=== PATIENT | female | born 1950 | race Caucasian/White ===

== ENCOUNTER 2017-01-07 12:09 | Emergency (ER) | payer OTHER, MEDICARE ==
[~2017-01-07] VITALS: Ht 157.5 cm; Wt 75.0 kg
[2017-01-07 12:20] VITALS: BP 167/110; PULSE 107; RESP 16; O2SAT 95
[2017-01-07] MEDS ORDERED: 0.9% Sodium Chloride 1,000 ML IV ONE (13:40)
--- NOTE | 2017-01-07 13:57 | ED.REPORT ---
HPI-General Illness Date of Service Jan 07, 2017 ED Provider: Familia Roberts PA-C Malina is a 66-year-old female with a recent history of a right total knee arthroplasty who presents the emergency department with a chief complaint of numbness in her hands and feet. She is referred to emergency department by her primary care provider who is concerned about the possibility of a pulmonary embolus due to her mild shortness of breath and tachycardia. She admits reduced exercise tolerance and tachycardia. Patient underwent a right TKA November 24, performed by Dr. Mirza. Patient states that healing and physical therapy of progressing well. Not on blood thinners, but she is taking aspirin. Patient reports numbness began in her feet approximately 10 days ago progressing up her calf above the knee, and to come in by sensation of cool skin and heaviness in her legs. At this point she has similar sensations in her hands and forearms. She states she feels unsteady on her feet, and her daughter states that her gait appears unusual for her. Denies falls, vertigo, syncope or presyncope. Denies vision changes, weakness. Denies fever, chills, malaise, abdominal pain, vomiting, diaphoresis, chest pain, palpitations, cough, wheeze. Denies leg swelling or pain. Nursing Notes Stated Complaint: NUMBNESS/SENT FROM DR OFFICE Chief Complaint: Neuro Symptoms/ Deficits Nursing Notes Reviewed: Yes Allergies: Coded Allergies: codeine (Verified Allergy, Intermediate, HIVES, 01/07/17) General Time Seen by MD: 13:12 Chief Complaint Other (limb numbness) Past Medical History Past Medical History Notes: Right total knee arthroplasty Review of Systems General: Denies fever, chills, malaise. HEENT: Denies congestion, headache, sore throat. Respiratory: Admits reduced exercise tolerance. Denies dyspnea, cough, shortness of breath, wheezing. Cardiovascular: Denies chest pain, palpitations. Gastrointestinal: Denies vomiting, diarrhea, abdominal pain. Genitourinary: Denies frequency, urgency, dysuria, hematuria. Otherwise as noted in HPI. Physical Exam General: Well appearing, well developed, well nourished, no acute distress. Head: Atraumatic, normocephalic. Eyes: No scleral icterus or injection. No discharge. Vision grossly intact. ENT: Voice clear, hearing grossly intact. Respiratory: Regular rate and rhythm. Breath sounds present, clear to auscultation and equal bilaterally. No respiratory distress. No increased work of breathing, speaks in complete sentences. Cardiovascular: Slightly tachycardic at approximately 104 with regular rhythm, without murmur, gallop or rub. No pedal edema. Gastrointestinal: Abdomen flat and non-tender without guarding or rebound. Bowel sounds normoactive. Skin: Warm and dry. Left knee: Long midline scar consistent with TKA appears to be healing well without erythema, discharge or tenderness. Slight swelling and warmth is noted. Legs: Negative pitting edema, calf diameter roughly equal left or right, negative calf tenderness, negative Homans sign. DP pulses present, PT pulses not appreciated bilaterally. Skin color normal. Neurological: Slightly widened gait, normal Romberg, negative pronator drift. Normal finger-nose, rapid hand. Sensation to sharp touch intact over medial, dorsal and lateral feet bilaterally. Sensation to sharp touch intact in the first third and fifth fingers bilaterally. Cranial nerves: Vision grossly intact, PERRL, EOMI. Facial motion symmetrical, sensation to light touch over forehead, maxilla and mandible present and equal B /L. Voice clear and fluent, no drooling/pooling of saliva, uvula rises midline. Psychological: Alert and oriented x3. Speech appropriate, linear and logical. Behavior appropriate. Vital Signs Vital Signs Date Time Temp Pulse Resp B/P Pulse Ox O2 Delivery O2 Flow Rate FiO2 01/07/17 16:03 104 16 170/94 98 Room Air 01/07/17 12:20 36.1 107 16 167/110 95 Room Air Initial VS: Reviewed, Vital signs abnormal (tachycardia, elevated blood pressure.) Interpretation & Diagnostics Interpretation & Diagnostics: NIH stroke scale equals 0 Lab Results Interpretation Result Diagram: 01/07/17 1340 01/07/17 1340 Test 01/07/17 13:40 White Blood Count 7.3th/mm3 (3.8-10.1) Red Blood Count 4.85mil/mm3 (3.90-5.20) Hemoglobin 14.4g/dL (12.0-15.6) Hematocrit 43.6% (35.0-46.0) Mean Corpuscular Volume 89.9fL (81-100) Mean Corpuscular Hemoglobin 29.7pg (27.0-35.0) Mean Corpuscular Hemoglobin Concent 33.0% (32.0-37.0) Red Cell Distribution Width 12.7% (12.3-15.4) Platelet Count 362bil/L (150-400) Neutrophils (%) (Auto) 63.7% (40-74) Lymphocytes (%) (Auto) 25.5% (14-46) Monocytes (%) (Auto) 9.0% (4-12) Eosinophils (%) (Auto) 1.4% (0-5) Basophils (%) (Auto) 0.3% (0-3) D-Dimer 0.9mg/L (<0.50) Sodium Level 137mEq/L (134-144) Potassium Level 3.8mEq/L (3.5-5.2) Chloride Level 98mEq/L (97-108) Carbon Dioxide Level 24mmol/L (18-29) Blood Urea Nitrogen 18mg/dL (8-27) Creatinine 0.51mg/dL (0.57-1.00) Estimat Glomerular Filtration Rate 173mL/min (>59) Glucose Level 110mg/dL (60-99) Calcium Level 9.3mg/dL (8.5-10.1) Total Bilirubin 0.4mg/dL (0.0-1.2) Aspartate Amino Transf (AST/SGOT) 25U/L (0-50) Alanine Aminotransferase (ALT/SGPT) 19U/L (0-32) Alkaline Phosphatase 100U/L (25-165) Troponin T < 0.010ug/L (0.0-0.011) Total Protein 7.7g/dL (6.4-8.4) Albumin 4.6g/dL (3.4-5.0) ECG Interpretation Interpreted by: ED physician Normal ECG Interpretation: Normal ECG w/ rate of... (90) CT Chest Interpretation PROCEDURE: CT ANGIO CHEST PULMONARY EMBOLISM ([id number]) INDICATIONS: positive d-dimer, short of breath, tachycardia IMPRESSION: 1. No acute process. No pulmonary embolus. 2. Coronary artery disease. Re-Eval/Medical Decision Med Decision/Clinical Course I discussed this case with both Dr. Gwen Stokes and Dr. haines. Dr. Haines met with and examined the patient 66 female with a recent history of a right TKA referred to department by her primary care provider out of concern for possible PE. Admits reduced exercise tolerance, shortness of breath, tachycardia. She also complains of progressive numbness in her feet and her hands began approximately one week ago. She states she feels unsteady on her feet. Physical examination essentially normal with the exception of elevated blood pressure with diastolic readings over 100. There is no indication of infection in the knee. Neurological examination is normal. NIH stroke scale is 0. D-dimer 0.7. CT angiogram chest is negative for pulmonary embolus. EKG is normal with a rate of 90. Troponin negative. CBC and CMP are normal. At this point I do not believe her shortness of breath is caused by a cardiac event, pulmonary embolus or anemia. I do not believe this is likely to be pneumonia. I do not believe her neurological symptoms are caused by stroke, subarachnoid hemorrhage, electrolyte imbalance. There is no evidence of end organ damage due to hypertension. Discharge the patient home and advised her to follow-up with her orthopedic surgeon as planned and follow throughout her MRI next week. I advised her to follow up with her primary care provider regarding her elevated blood pressure. Provided emergency return precautions. Patient understands and agrees with the plan. Discharge & Departure Primary Impression: Numbness Disposition: Home Discharge Condition All VS Reviewed: Yes Condition: Stable Additional Instructions: Evaluation in the emergency department for numbness in the limbs and shortness of breath. CT of the lungs was negative for a blood clot. Neurological examination was normal. At this point I am reassured that your numbness is unlikely to be a stroke. I believe you are stable and safe to be discharged. Follow up with your orthopedic surgeon and follow through on the MRI you have planned for next week. We do notice that your blood pressure is elevated today, however there is no indication that it is causing any damage to your organs at this point. Please follow-up with your primary care provider to monitor this. Return to emergency department for new or worsening symptoms including new neurological symptoms such as vision changes, sudden or severe headache, or weakness in your limbs. Return for chest pain, difficulty breathing or shortness of breath. Referrals: Mila Flores MD (PCP) EDSupervising Provider for APC: Bora Faustin DO copies to: Mila Flores MD, Seth PA-C Jan 07, 2017 13:56
[2017-01-07 14:04] LABS: BASOPHILS % (AUTO) 0.3 % (0-3); EOSINOPHILS % (AUTO) 1.4 % (0-5); Mean Corpuscular Hemoglobin 29.7 pg (27.0-35.0); Mean Corpuscular Volume 89.9 fL (81-100); NEUTROPHILS % (AUTO) 63.7 % (40-74); Platelet Count 362 bil/L (150-400)
[2017-01-07 14:22] LABS: TROPONIN T < 0.010 ug/L (0.0-0.011)
--- NOTE | 2017-01-07 15:45 | DRSVH ---
PROCEDURE: CT ANGIO CHEST PULMONARY EMBOLISM ([id number]) INDICATIONS: positive d-dimer, short of breath, tachycardia TECHNIQUE: After the administration of intravenous contrast, 2 mm thick sections acquired from the pulmonary api bri to the posterior costophrenic angles. 3-dimensional maximum intensity projection (MIP) coronal a nd sagittal reformats were then acquired through the thorax. For radiation dose reduction, the follo wing was used: automated exposure control, adjustment of mA and/or kV according to patient size. COMPARISON: None. FINDINGS: Image quality: Excellent. Pulmonary arteries: Pulmonary arteries are normal in size, and demonstrate no intraluminal filling d efects to suggest central pulmonary embolism. Lungs and pleura: Lungs are clear. No pleural effusions or pneumothorax. Central and peripheral ai rways are patent. Mediastinum: Heart size is normal, without pericardial effusion. There is calcification of the coron patricia vasculature. No mediastinal or hilar adenopathy. Thoracic aorta is normal in caliber and enhance ment. Esophagus is normal in caliber, without hiatal hernia. Bones and chest wall: No suspicious bony lesions. Ribs and thoracic spine appear intact throughout. Thyroid gland is within normal limits. No axillary or supraclavicular adenopathy. Abdomen: Visualized upper abdominal solid organs appear normal in the early arterial phase of enhanc ement. IMPRESSION: 1. No acute process. No pulmonary embolus. 2. Coronary artery disease. Dictated by: Swapnil Vicente M.D. on 01/07/2017 at 15:41 Approved by: Swapnil Vicente M.D. on 01/07/2017 at 15:44
[2017-01-07 16:03] VITALS: BP 170/94; PULSE 104; RESP 16; O2SAT 98
== END 2017-01-07 16:33 | disposition home or self-care (01) ==
LOC: SED 12:09
DX: R20.2 Paresthesia of skin (principal); Z79.82 Long term (current) use of aspirin; Z96.651 Presence of right artificial knee joint; Z88.5 Allergy status to narcotic agent
CPT/HCPCS: 36415; 71275; 80053; 84484; 85025; 85379; 93005; 96360; 99285; J7030; Q9967